=== PATIENT | male | born 1995 | race Caucasian/White ===

== ENCOUNTER 2019-05-03 | Emergency (ER) | payer SELFPAY ==
[2019-05-03 00:09] VITALS: BP 132/82
[2019-05-03] MEDS ORDERED: ACETAMINOPHEN 500 MG TAB PO ONE (00:15)
--- NOTE | 2019-05-03 00:47 | XRay Report ---
CHEST 1 VIEW INDICATION: Chest Pain. COMPARISON: 01/25/2019 FINDINGS: SUPPORT DEVICES: None. HEART / MEDIASTINUM: No significant abnormality. LUNGS / PLEURA: No significant pulmonary or pleural abnormality. No pneumothorax. ADDITIONAL FINDINGS: IMPRESSION: 1. No acute findings. Signer Name: Gera Art MD Signed: 05/03/2019 12:43 AM Workstation Name: [email or web address]
== END 2019-05-03 02:00 | disposition left against medical advice (07) ==
LOC: ED
DX: R07.89 Other chest pain (principal); Z53.21 Procedure and treatment not carried out due to patient leaving prior to being seen by health care provider
CPT/HCPCS: 71045; 93005; 93010

== ENCOUNTER 2019-05-04 01:44 | Emergency (ER) | payer SELFPAY ==
[2019-05-04] MEDS ORDERED: ACETAMINOPHEN 500 MG TAB ONE (02:01)
[2019-05-04] MEDS ORDERED: ONDANSETRON 4 MG ODT TAB PO ONE (02:06)
[2019-05-04] MEDS ORDERED: ACETAMINOPHEN 500 MG TAB PO ONE (02:06)
[2019-05-04] MEDS ORDERED: ONDANSETRON 4 MG ODT TAB ONE (02:06)
--- NOTE | 2019-05-04 08:58 | Emergency Department Report ---
ED General Adult HPI - General Chief complaint: Dizziness Stated complaint: DIZZY, FEVER, AND VOMITING Source: patient Mode of arrival: Ambulatory Limitations: No Limitations - History of Present Illness Initial comments: 24yo male states that he is experiencing dizziness, SOB, vomiting blood, sore throat and EPPS. Pt further states that he has experienced similar symptoms 2 months ago. -: days(s) (3) Location: mouth, chest Radiation: non-radiation Severity scale (0 -10): 10 Quality: aching Consistency: intermittent Improves with: none Worsens with: none Associated Symptoms: cough, headaches, shortness of breath Treatments Prior to Arrival: none - Related Data Previous Rx's Medication Instructions Recorded Last Taken Type Acetaminophen [Non-Aspirin Extra 500 mg PO Q6HR PRN #30 tablet 01/26/19 Unknown Rx Strength] Albuterol Sulfate [Proair 90 mcg IH Q4HR PRN #2 aer.pow.ba 01/26/19 Unknown Rx Respiclick] Ibuprofen [Motrin] 600 mg PO Q8H PRN #30 tablet 01/26/19 Unknown Rx ALBUTEROL Inhaler (OR & NICU) 2 puff IH QID PRN #8.5 gram 05/04/19 Unknown Rx [ProAir HFA Inhaler] Amoxicillin/Potassium Clav 1 each PO BID 10 Days #20 tablet 05/04/19 Unknown Rx [Augmentin 875-125 Tablet] Allergies Allergy/AdvReac Type Severity Reaction Status Date / Time No Known Allergies Allergy Verified 05/04/19 02:02 ED Review of Systems ROS: Stated complaint: DIZZY, FEVER, AND VOMITING Other details as noted in HPI ED Past Medical Hx - Past Medical History Previous Medical History?: No - Surgical History Past Surgical History?: No - Social History Smoking Status: Current Every Day Smoker Substance Use Type: Marijuana - Medications Home Medications: Home Medications Medication Instructions Recorded Confirmed Last Taken Type Acetaminophen [Non-Aspirin Extra 500 mg PO Q6HR PRN #30 tablet 01/26/19 Unknown Rx Strength] Albuterol Sulfate [Proair 90 mcg IH Q4HR PRN #2 aer.pow.ba 01/26/19 Unknown Rx Respiclick] Ibuprofen [Motrin] 600 mg PO Q8H PRN #30 tablet 01/26/19 Unknown Rx ALBUTEROL Inhaler (OR & NICU) 2 puff IH QID PRN #8.5 gram 05/04/19 Unknown Rx [ProAir HFA Inhaler] Amoxicillin/Potassium Clav 1 each PO BID 10 Days #20 tablet 05/04/19 Unknown Rx [Augmentin 875-125 Tablet] ED Physical Exam - General Limitations: No Limitations General appearance: alert, in no apparent distress, other (fatigued) - Head Head exam: Present: atraumatic, normocephalic, normal inspection - Eye Eye exam: Present: normal appearance, PERRL, EOMI - ENT ENT exam: Present: TM's normal bilaterally - Expanded ENT Exam Expanded Ear exam: Present: normal external inspection. Absent: auricular trauma Mouth exam: Present: tongue normal Teeth exam: Present: normal inspection Throat exam: Positive: tonsillar erythema, tonsillomegaly, tonsillar exudate - Neck Neck exam: Present: normal inspection. Absent: tenderness, meningismus, full ROM - Respiratory Respiratory exam: Present: normal lung sounds bilaterally, other (increased effort with inspiration). Absent: wheezes, rales - Cardiovascular Cardiovascular Exam: Present: regular rate, normal rhythm, normal heart sounds - GI/Abdominal GI/Abdominal exam: Present: soft, normal bowel sounds. Absent: distended, tenderness - Rectal Rectal exam: Present: deferred - Extremities Exam Extremities exam: Present: normal inspection, full ROM, tenderness - Back Exam Back exam: Present: normal inspection, full ROM. Absent: tenderness - Neurological Exam Neurological exam: Present: alert, altered, oriented X3 - Skin Skin exam: Present: intact, other (warm, moist). Absent: urticaria ED Course Vital Signs 05/04/19 05/04/19 05/04/19 01:51 09:12 12:47 Temperature 102.9 F H 100.4 F H Pulse Rate 119 H 75 Pulse Rate [ 81 Lying] Respiratory 20 18 Rate Blood Pressure 123/57 Blood Pressure 109/55 [Lying] Blood Pressure 104/52 [Right] O2 Sat by Pulse 98 100 Oximetry ED Medical Decision Making - Lab Data Result diagrams: 05/04/19 10:36 - Medical Decision Making 24yo male states that he is experiencing dizziness, SOB,vomiting blood, sore throat and EPPS today. Pt was seen in hospital on 05/03/19 and had a chest x- ray taken that was reviewed and no abnormalities were found. Tylenol and Zofran was given at the initial visit. Pt left hospital before full assessment and tr eatment was given. He returned today. He then states that he has experienced similar symptoms 2 months ago. Pt states that he has a history of bronchitis and that he smokes. Orthostatic vitals were obtained and were WNL. Pt was given Duoneb treatment, Ibuprofen and Decadron injection. Pt verbalizes that he feels better. Pt was instructed to use Proair inhaler and Augmentin s prescribed; f/u with PCP in 2-3 and see ER as needed. Pt verbalized understanding and agreed with the plan of care. Critical care attestation.: If time is entered above; I have spent that time in minutes in the direct care of this critically ill patient, excluding procedure time. ED Disposition Clinical Impression: Pharyngitis, Bronchitis, Smoker Disposition: TO HOME OR SELFCARE Is pt being admited?: No Does the pt Need Aspirin: No Condition: Stable Instructions: Chronic Bronchitis (ED) Additional Instructions: Pt was instructed to use Proair inhaler and Augmentin s prescribed; f/u with PCP in 2-3 and see ER as needed. Pt verbalized understanding and agreed with the plan of care. Prescriptions: Amoxicillin/Potassium Clav [Augmentin 875-125 Tablet] 1 each PO BID 10 Days #20 tablet ALBUTEROL Inhaler (OR & NICU) [ProAir HFA Inhaler] 2 puff IH QID PRN #8.5 gram PRN Reason: Shortness Of Breath Referrals: PRIMARY CARE, [Primary Care Provider] - 3-5 Days [facility] [Outside] - 3-5 Days Time of Disposition: 13:43
[2019-05-04] MEDS ORDERED: dexAMETHasone 4 MG/ML VIAL IM ONE (09:54)
[2019-05-04 11:07] LABS: Basophils % (Auto) 0.6 % (0.0-1.8); Eosinophils % (Auto) 0.3 % (0.0-4.3); Hematocrit 41.7 % (35.5-45.6); Hemoglobin 13.5 gm/dl (11.8-15.2); Lymphocytes # (Auto) 1.3 K/mm3 (1.2-5.4); Mean Corpuscular HGB Conc 32 % (32-34); Mean Corpuscular Volume 72 fl (84-94); Monocytes % (Auto) 15.8 % (0.0-7.3); Platelet Count 176 K/mm3 (140-440); Red Cell Distribution Width 14.5 % (13.2-15.2)
[2019-05-04] MEDS ORDERED: IPRATROPIUM/ALBUTEROL SULFATE 3 ML AMPUL.NEB IH ONE (11:08)
[2019-05-04] MEDS ORDERED: IBUPROFEN 600 MG TAB PO ONE ×2 (11:09→11:13)
[2019-05-04] MEDS ORDERED: SODIUM CHLORIDE 0.9% 1000 ML 1,000 ML IV ONE (11:50)
[2019-05-04 12:49] VITALS: BP 109/55
[2019-05-04] MEDS ORDERED: IPRATROPIUM/ALBUTEROL SULFATE 3 ML AMPUL.NEB IH SCH (14:00)
== END 2019-05-04 14:01 | disposition home or self-care (01) ==
LOC: ED 01:44
DX: J02.9 Acute pharyngitis, unspecified (principal); J40 Bronchitis, not specified as acute or chronic; F17.200 Nicotine dependence, unspecified, uncomplicated
CPT/HCPCS: 36415; 85025; 94640; 96372; 99283; J1100; 94644; Q0162

== ENCOUNTER 2019-11-05 12:19 | Emergency (ER) | payer SELFPAY ==
[2019-11-05 12:26] VITALS: BP 138/86
[2019-11-05] MEDS ORDERED: guaiFENesin 100 MG/5 ML ORAL LIQD PO ONE (16:00)
[2019-11-05] MEDS ORDERED: predniSONE 20 MG TAB PO ONE (16:00)
--- NOTE | 2019-11-05 16:00 | Emergency Department Report ---
Minor Respiratory - HPI Chief Complaint: Upper Respiratory Infection Stated Complaint: SOB/COUGH/THROAT ITCHING/DIZZY Time Seen by Provider: 11/05/19 15:42 Duration: 2 Days Severity: mild Minor Respiratory: Yes Cough, No Rhinorrhea, No Sore Throat, No Able to Tolerate Fluids, No Ear Pain, No Sick Contacts, No Hemoptysis, No Chest Pain, No Shortness of Breath, No Fever Other History: 24-year-old healthy male with no prior medical history presents the ED with complaints of cough and itchy throat for the past day. Patient denies being in contact with any one that is been sick. He denies fever/chills/shortness of breath/nausea vomiting or abdominal pain ED Review of Systems ROS: Stated complaint: SOB/COUGH/THROAT ITCHING/DIZZY Other details as noted in HPI Comment: All other systems reviewed and negative ED Past Medical Hx - Past Medical History Previous Medical History?: No - Surgical History Past Surgical History?: No - Social History Smoking Status: Current Some Day Smoker Substance Use Type: None - Medications Home Medications: Home Medications Medication Instructions Recorded Confirmed Last Taken Type Acetaminophen [Non-Aspirin Extra 500 mg PO Q6HR PRN #30 tablet 01/26/19 Unknown Rx Strength] Albuterol Sulfate [Proair 90 mcg IH Q4HR PRN #2 aer.pow.ba 01/26/19 Unknown Rx Respiclick] Ibuprofen [Motrin] 600 mg PO Q8H PRN #30 tablet 01/26/19 Unknown Rx Amoxicillin/Potassium Clav 1 each PO BID 10 Days #20 tablet 05/04/19 Unknown Rx [Augmentin 875-125 Tablet] Albuterol INH(or & Nicu Only) 2 puff IH QID PRN #8.5 gram 11/05/19 Unknown Rx [ProAir HFA Inhaler] Benzonatate [Tessalon Perles] 100 mg PO Q8HR #20 capsule 11/05/19 Unknown Rx Minor Respiratory Exam - Exam General: Vital signs noted. No distress. Alert and acting appropriately. HEENT: Yes Moist Mucous Membranes, No Pharyngeal Erythema, No Pharyngeal Exudates, No Rhinorrhea, No Conjuctival Injection, No Frontal Tenderness, No Maxillary Tenderness Ear: Neither TM Bulge, Neither TM Erythema, Neither EAC Pain, Neither EAC Discharge Neck: Yes Supple, No Adenopathy Lungs: Yes Good Air Exchange, No Wheezes, No Ronchi, No Stridor, No Cough, No Labored Respirations, No Retractions, No Use of Accessory Muscles, No Other Abnormal Lung Sounds Heart: Yes Regular, No Murmur Abdomen: Yes Normal Bowel Sounds, No Tenderness, No Peritoneal Signs Skin: No Rash, No Edema Neurologic: Alert and oriented, no deficits. Musculoskeletal: Unremarkable. ED Course Vital Signs 11/05/19 12:24 Temperature 98.9 F Pulse Rate 80 Respiratory 22 Rate Blood Pressure 138/86 O2 Sat by Pulse 100 Oximetry ED Medical Decision Making - EKG Data EKG shows normal: sinus rhythm Rate: normal - Radiology Data Radiology results: report reviewed, image reviewed Fluoro Time In Minutes: CHEST 1 VIEW INDICATION / CLINICAL INFORMATION: YEIMY. COMPARISON: 05/03/2019 FINDINGS: SUPPORT DEVICES: None. HEART / MEDIASTINUM: No significant abnormality. LUNGS / PLEURA: No significant pulmonary or pleural abnormality. No pneumothorax. ADDITIONAL FINDINGS: No significant additional findings. IMPRESSION: 1. No acute findings. No interval change. Signer Name: Coreen Lorenzana MD Signed: 11/05/2019 4:20 PM Workstation Name: [id number] Transcribed By: Dictated By: Coreen Lorenzana MD Electronically Authenticated By: Coreen Lorenzana MD Signed Date/Time: 11/05/19 1620 - Medical Decision Making 24-year-old male presents with bronchitis ED course: Patient received prednisone, cough suppressant in the ED. Chest x-ray ordered, chest x-ray shows no acute findings. Patient had no respiratory distress in the ED. No wheezing heard, no use of accessory muscles, I discussed with the patient to follow up with her primary care physician. I discussed with the patient will be going home on with albuterol inhaler as well as cough suppressant Vital signs are normalized, patient is saturation at 100% on room air. I discussed with patient that he is feeds worried about COVID he may get a covid testing and other urgent care facility his primary care doctor. I discussed with the patient is symptoms worsen to return to ED immediately. Critical care attestation.: If time is entered above; I have spent that time in minutes in the direct care of this critically ill patient, excluding procedure time. ED Disposition Clinical Impression: Bronchitis Disposition: DC-01 TO HOME OR SELFCARE Is pt being admited?: No Does the pt Need Aspirin: No Condition: Stable Instructions: Chronic Bronchitis (ED) Additional Instructions: Make sure to follow up with the primary care physician as discussed. Take all your medications as you've been prescribed. If you have any worsening symptoms or develop new symptoms please return to ED immediately. Prescriptions: Albuterol INH(or & Nicu Only) [ProAir HFA Inhaler] 2 puff IH QID PRN #8.5 gram PRN Reason: Shortness Of Breath Benzonatate [Tessalon Perles] 100 mg PO Q8HR #20 capsule Referrals: JOSE M WALLACE MD [Primary Care Provider] - 3-5 Days Forms: Work/School Release Form(ED) Time of Disposition: 16:42
--- NOTE | 2019-11-05 16:25 | XRay Report ---
CHEST 1 VIEW INDICATION / CLINICAL INFORMATION: YEIMY. COMPARISON: 05/03/2019 FINDINGS: SUPPORT DEVICES: None. HEART / MEDIASTINUM: No significant abnormality. LUNGS / PLEURA: No significant pulmonary or pleural abnormality. No pneumothorax. ADDITIONAL FINDINGS: No significant additional findings. IMPRESSION: 1. No acute findings. No interval change. Signer Name: Coreen Lorenzana MD Signed: 11/05/2019 4:20 PM Workstation Name: [id number]
== END 2019-11-05 16:57 | disposition home or self-care (01) ==
LOC: ED 12:19
DX: J40 Bronchitis, not specified as acute or chronic (principal); L29.9 Pruritus, unspecified; F17.200 Nicotine dependence, unspecified, uncomplicated; Z79.899 Other long term (current) drug therapy
CPT/HCPCS: 71045; 93005; 99283; J7512